=== PATIENT | male | born 1995 | race Caucasian/White ===

== ENCOUNTER 2018-03-23 22:30 | Emergency (ER) | payer MEDICAID, SELFPAY ==
[2018-03-23 22:31] VITALS: BP 162/78; PULSE 62; RESP 14; TEMP 36.7; O2SAT 97; BMI 32.8
--- NOTE | 2018-03-23 22:32 | ED.RN ---
NO OLD EKGS IN MUSE.
[2018-03-23 22:40] VITALS: PULSE 69; RESP 18
--- NOTE | 2018-03-23 22:40 | ED.VISSUMM ---
- ER Visit Summary Date of Service: 03/23/18 Chief Complaint: [] Asthma flare with shortness of breath and chest tightness History of Present Illness: The patient is a 22 M stated yesterday he developed wheezing and asthma flare. He is been using his inhaler every 20 minutes 2 puffs. He has had a dry cough. He has sick contacts. Current severity is mild. His last use of inhaler was prior to checking in the emergency department. This came on gradually. He has some tightness only when he gets wheezing. No current tightness. Occasional premature but current severity is mild. Maximum severity is mild. Worsened by coughing and having a cold. Denies any other associated symptoms. He has had this multiple times in the past. No recent prednisone. Physical Examination: [] Vital signs reviewed General: Well-nourished well-developed Head: Normocephalic atraumatic Eyes: Pupils equal round and reactive to light extraocular movements intact ENT: TMs clear no hemotympanum no trauma Neck: Nontender full range of motion Cardiovascular: Regular rate rhythm no murmurs normal S1-S2 Respiratory: No distress very mild and expiratory wheeze bilaterally chest nontender Abdomen: Soft nontender nondistended normal bowel sounds no masses Back: Nontender no CVA tenderness Extremities: Nontender active range of motion ?4 extremities no trauma Skin: Normal color no trauma Neuro alert oriented cranial nerves II through XII intact normal strength sensation reflexes Test Results: [] Emergency Department Course and Treatment: [] Time I feel the patient is having a viral upper respiratory infection likely trickling an asthma flare. He will be given prednisone. 1 dose in the department and a DuoNeb. He felt better after treatment. We will continue redness on burst at home. Patient will use his inhaler. I do not feel he needs a chest x-ray antibiotics or lab work or EKG. Treatment Plan: [] Disposition: [] Impression: [] Asthma exacerbation Viral upper respiratory infection This note was generated with [employer] dictation software. It may contain incorrect words, spelling, and punctuation that were not noted in review of the chart prior to signing ED Disposition - Plan for ED Patient: Chief Complaint: Chest Pain Referrals: [facility] Doctor,Out of [Primary Care Provider] -
--- NOTE | 2018-03-23 22:42 | ED.DEP ---
ED Disposition - Plan for ED Patient: Disposition: Home or Assisted Living Chief Complaint: Chest Pain Instructions: Understanding Asthma Triggers Prescriptions: predniSONE tablet 60 mg PO DAILY #15 tab Referrals: [facility] Doctor,Out of [Primary Care Provider] - Prabhakar Ac DO [NON CLINICAL AFFILIATE] -
[2018-03-23] MEDS: Ipratropium/Albuterol Sulfate 3 ML AMPUL.NEB INHALATION (22:54)
[2018-03-23 23:07] VITALS: O2SAT 94
[2018-03-23] MEDS: predniSONE 20 MG Tablet 60 MG PO (23:11)
[2018-03-23 23:12] VITALS: BP 147/77; PULSE 75; RESP 18; TEMP 37.6; O2SAT 96
[2018-03-23 23:15] VITALS: BP 160/87; PULSE 68; RESP 18; O2SAT 96
== END 2018-03-23 23:20 | disposition home or self-care (01) ==
LOC: ED 23:20
PROVIDERS: Emergency Provider Emergency Medicine
DX: J45.901 Unspecified asthma with (acute) exacerbation (principal); J06.9 Acute upper respiratory infection, unspecified
CPT/HCPCS: 94640; 99284

== ENCOUNTER 2018-05-05 11:10 | Emergency (ER) | payer MEDICAID, SELFPAY ==
[2018-05-05 11:11] VITALS: BP 142/72; PULSE 73; RESP 16; TEMP 36.8; O2SAT 98; BMI 34.4
--- NOTE | 2018-05-05 11:21 | RAD_ITS ---
STUDY: X-RAY CHEST REASON FOR EXAM: Male, 22 years old. Productive cough and wheezing TECHNIQUE: PA and lateral views of the chest. COMPARISON: None. FINDINGS: The lungs are clear and expanded. There is no demonstrated pleural abnormality. Normal size heart. Normal mediastinum and gonzález. Normal visualized pulmonary arteries. Normal visualized aortic arch and descending thoracic aorta. Normal visualized thoracic spine. Normal visualized ribs, clavicles, and shoulders. There is no demonstrated abnormality of the visualized soft tissue structures of the upper abdomen. RAD/Chest PA and Lateral IMPRESSION: Normal x-ray examination of the chest. Electronically Signed: Angie Shepard MD at 12:49 EST Tel , Service support ,
[2018-05-05 11:32] VITALS: PULSE 70; RESP 14
[2018-05-05] MEDS: Albuterol 2.5 MG/3 ML VIAL.NEB. INHALATION (11:32)
[2018-05-05] MEDS: Ipratropium/Albuterol Sulfate 3 ML AMPUL.NEB INHALATION (11:32)
[2018-05-05] MEDS: predniSONE 20 MG Tablet 60 MG PO (11:34)
[2018-05-05 13:26] VITALS: BP 140/59; PULSE 65; RESP 16; TEMP 36.7; O2SAT 97
--- NOTE | 2018-05-05 14:42 | ED.VISSUMM ---
- ER Visit Summary Date of Service: 05/05/18 Chief Complaint: Cough and shortness of breath History of Present Illness: The patient is a 22 M who is a smoker. He presents with productive cough of brown colored sputum. Onset of illness yesterday. He complains of subjective fever. Denies chills or sweats. He denies ocular, visual auditory symptoms. Does claim rhinorrhea and sore throat. He does report shortness of breath and shortness breath with activity. He does report nausea. He complains of myalgias and arthralgias. He also rates of headache and weakness. Review of systems otherwise negative. Past medical history unremarkable. Physical Examination: Vital signs noted and unremarkable. He is not hypoxic nor is he febrile. He appears ill. He has a moist cough. Head is atraumatic normocephalic. Pupils are equal round reactive. Extraocular muscles are intact. TMs are pearly white with landmarks noted. Nares patent with clear drainage. Posterior pharynx without erythema or exudate. Uvula is midline. There is no dysphonia or dysphasia. Trachea is midline. There is no stridor with auscultation of the neck. Abdomen is soft nontender. There is no asymmetry, swelling, discoloration, leg vein distention, palpable cords or tenderness along the distribution of the deep venous system. Neuro exam is nonfocal. Test Results: Two-view chest x-ray interpreted by me as negative Emergency Department Course and Treatment: Chest x-ray is obtained because he reports brown colored sputum. He was treated with a DuoNeb and albuterol and received 60 mg of prednisone. He was reassessed at 1440. He is no longer wheezing. Treatment Plan: 2 puffs MDI every 2 hours while awake for the next 2-3 days and 5-day burst of prednisone Disposition: Discharged home in stable improved condition Impression: Acute asthmatic bronchitis This note was generated with [employer] dictation software. It may contain incorrect words, spelling, and punctuation that were not noted in review of the chart prior to signing ED Disposition - Plan for ED Patient: Disposition: Home or Assisted Living Instructions: ED Bronchitis Asthmatic Prescriptions: Prednisone [Deltasone] 40 mg PO DAILY #10 tab Referrals: Care Physician,No Primary [Primary Care Provider] - Doctor,Your [STAFF PHYSICIAN] - 3-5 Days if not improving
== END 2018-05-05 14:59 | disposition home or self-care (01) ==
PROVIDERS: Emergency Provider Emergency Medicine
DX: J45.909 Unspecified asthma, uncomplicated (principal); R11.0 Nausea; J02.9 Acute pharyngitis, unspecified; R51 Headache; M79.10 Myalgia, unspecified site; M25.50 Pain in unspecified joint; F17.200 Nicotine dependence, unspecified, uncomplicated
CPT/HCPCS: 71046; 87804; 94640; 99283

== ENCOUNTER 2018-07-04 07:52 | Emergency (ER) | payer MEDICAID, SELFPAY ==
[2018-07-04 07:55] VITALS: BP 160/70; PULSE 53; RESP 18; TEMP 36.4; O2SAT 98; BMI 32.5
[2018-07-04 08:34] VITALS: BP 144/77; PULSE 67; RESP 16; TEMP 37.1; O2SAT 97
[2018-07-04 09:00] LABS: Color, Urine Yellow (Yellow); Glucose, Dipstick Normal (Normal); Ketone-Dipstick 15 mg/dl (Negative); Leukocyte Esterase-Dipstick 25 /ul (Negative); Nitrite-Dipstick Negative (Negative); Occult Blood-Urine 10 /ul (Negative); Protein-Dipstick Negative (Negative); Urine Bilirubin Dipstick Negative (Negative); Urine Clarity Sl. Cloudy (Clear); Urine Urobilinogen 4 mg/dl (Normal)
--- NOTE | 2018-07-04 09:02 | ED.VISSUMM ---
- ER Visit Summary Date of Service: 07/04/18 Chief Complaint: [Body aches and sore throat] History of Present Illness: The patient is a 22 M [presents to the emergency department with multiple complaints that started 2 days ago. Patient complains of a sore throat and diffuse body aches. He has had headache and nausea but no vomiting. He denies any diarrhea. Patient states that he has had multiple sick contacts at work. He has had a mild cough that is only occasionally productive. He is not had a fever. Patient also states that he has had some frequency and some dysuria over the last couple of days. He denies any blood in his urine.] Physical Examination: [HEENT-PERRLA, EOMI. Cranial nerves II through XII grossly intact. TMs clear. Mucous membranes moist. No adenopathy. Mild pharyngeal erythema. No tonsillar exudates. No trismus. Uvula midline. Cardiovascular-regular rate and rhythm without murmur or ectopy Lungs-clear to auscultation, chest wall stable without crepitus or subcu emphysema Abdomen-normoactive bowel sounds, soft, nontender, no rebound or rigidity, no peritoneal signs. Extremities-intact ?4, normal range of motion, normal pulses, atraumatic] Test Results: [Rapid strep screen was negative. Urinalysis was normal. Patient] Emergency Department Course and Treatment: [] Treatment Plan: [Patient will be given a prescription for naproxen. Patient advised to push fluids. Advised to follow-up with primary care physician contractor buyer for no doc within next 5-7 days. Patient to return if condition should worsen anyway. I suspect patient likely has a viral syndrome.] Disposition: [Discharged home in stable condition] Impression: Viral URI] This note was generated with [employer] dictation software. It may contain incorrect words, spelling, and punctuation that were not noted in review of the chart prior to signing ED Disposition - Plan for ED Patient: Referrals: Care Physician,No Primary [Primary Care Provider] -
--- NOTE | 2018-07-04 09:04 | ED.DEP ---
ED Disposition - Plan for ED Patient: Instructions: ED Viral Syndrome Prescriptions: Naproxen [Naprosyn] 500 mg PO BID PRN #20 tab Referrals: Care Physician,No Primary [Primary Care Provider] - Felicia Diop MD [STAFF PHYSICIAN] - 5-7 Days
[2018-07-04 09:06] LABS: Bacteria RARE /hpf (None Seen); Red Blood Cells-Urine 0-5 SEEN /hpf (0-5); Squamous Epithelial Cells - UA 0-5 SEEN /hpf (0-5); White Blood Cells 0-5 SEEN /hpf (0-5)
[2018-07-04 09:07] LABS: Mucous, Urine 1+ /hpf (<or=2+)
== END 2018-07-04 09:37 | disposition home or self-care (01) ==
LOC: ED 08:57
PROVIDERS: Emergency Provider Emergency Medicine
DX: J06.9 Acute upper respiratory infection, unspecified (principal); B34.9 Viral infection, unspecified; R30.0 Dysuria; R35.0 Frequency of micturition; R05 Cough; R51 Headache; R11.0 Nausea
CPT/HCPCS: 81001; 87880; 99281; 99282

== ENCOUNTER 2021-04-10 12:26 | Emergency (ER) | payer OTHER, SELFPAY ==
[2021-04-10 12:27] VITALS: BP 147/85; PULSE 77; RESP 16; TEMP 36.4; O2SAT 96; BMI 32.3
--- NOTE | 2021-04-10 12:51 | ED.VIS.LOWEX ---
HPI History of Present Illness Chief Complaint: Lower Extremity Injury Narrative Narrative: 25-year-old male presenting with right ankle pain. He states this around the medial and lateral malleoli. Patient states he rolled his ankle the other day running with his dog. He was seen in [facility] emergency room and had x-rays of the right ankle which were negative for fracture. Patient states he still has some pain and swelling in his ankle and he is concerned that his pain is not gone away. He states he is icing and elevating his right ankle. He is taking anti-inflammatories for pain. PFSH PFSH Home Medications albuterol sulfate [Ventolin Hfa (SP)] 1 - 2 puff INHALATION Q4H PRN PRN 05/05/18 [History Last Taken Unknown] naproxen 500 mg PO BID PRN #20 tab 07/04/18 [Rx Last Taken Unknown] tiotropium bromide [Spiriva] 18 mcg IH BID 07/04/18 [History Last Taken Unknown] naproxen [Naprosyn] 500 mg PO BID #20 tab 04/10/21 [Rx Last Taken Unknown] Allergy/AdvReac Type Severity Reaction Status Date / Time No Known Allergies Allergy Verified 04/10/21 12:27 Social History Smoking Status: Never smoker ROS ROS ED Constitutional Constitutional ED: Denies chills or fever(s) Eyes Eyes: Denies blurry vision or diplopia ENT ENT ED: Denies rhinorrhea or sore throat Cardiovascular Cardiovascular: Denies palpitations or racing heartbeat Respiratory/Chest Respiratory/Chest: Denies cough or dyspnea Gastrointestinal Gastrointestinal: Denies abdominal pain, diarrhea, nausea or vomiting Genitourinary Genitourinary ED: Denies dysuria, hematuria or urinary frequency Musculoskeletal Musculoskeletal: Reports other Details: Right ankle pain and swelling Integumentary Denies abscess or rash Neurologic Neurologic: Denies headache(s) or paresthesias EXAM Physical Exam Const Vital Signs: 04/10/21 12:27 Temperature 97.5 F L Temperature Source Temporal Pulse Rate 77 Respiratory Rate 16 Blood Pressure 147/85 H Blood Pressure Mean 105 Pulse Ox 96 Oxygen Delivery Method Room Air Positive well nourished General Appearance ED: NAD HEENT Reports moist mucous membranes normocephalic Resp normal respiratory effort and clear to auscultation bilaterally Cardio regular rate and regular rhythm Extremity Extremity Narrative: Tenderness and swelling to the medial and lateral malleolus of the right ankle. Right foot neurovascular intact brisk cap refill to all 5 toes. Patient able to dorsiflex and plantarflex the right ankle. No tenderness of the foot. Neuro oriented x3 Sensorium / Orientation: alert Psych mental status grossly normal Skin Lesions: no lesions Rashes: no rashes MDM MDM MDM Narrative Medical decision making narrative: Patient presenting with right ankle pain. He states he rolled it the other day. He is already had an x-ray of the right ankle which was negative for fracture. He has an Rc wrap and is bearing weight on it using 1 crutch. I obtained another x-ray today as the patient had concern that maybe they missed something at the other hospital. X-ray on my interpretation of his right ankle shows no acute fracture or subluxation. There is soft tissue swelling. Patient was counseled to keep this elevated and compressed. He has an Aircast and does not require. He has crutches and is using one of them. He is counseled he is weightbearing as tolerated. Patient will be discharged home to follow-up with his PCP. Impression: 1. Right ankle sprain Radiography Diagnostic Testing: Clinical Impression(s) from Imaging Studies Ankle X-Ray 04/10/21 12:55 IMPRESSION: Soft tissue swelling without underlying acute fracture. Electronically Signed: Jf Whatleyrenan, at 13:39 EST Tel , Service support , Discharge Plan Triage Chief Complaint: Lower Extremity Injury ED Provider: Eric Tovar Dx/Rx/DC Orders Instructions: ED Ankle Sprain (Adult) Prescriptions: New naproxen [Naprosyn] 500 mg tablet 500 mg PO BID Qty: 20 RF: 0 No Action albuterol sulfate [Ventolin HFA] 1 INHALER inhaler 1 - 2 puff inhalation Q4H PRN PRN (Reason: Wheezing) RF: 0 tiotropium bromide [Spiriva with HandiHaler] 18 MCG capsule, w/inhalation device 18 mcg IH BID RF: 0 naproxen 500 MG tablet 500 mg PO BID PRN Qty: 20 RF: 0 Primary Care Provider: Hayley Howard NP Referrals: Hayley Howard NP, G[employer]OW IRRIGATOR-C [Primary Care Provider] - Disposition Disposition: Home, Self Care
--- NOTE | 2021-04-10 12:55 | RAD_ITS ---
STUDY: X-RAY - RIGHT ANKLE REASON FOR EXAM: Male, 25 years old. Ankle pain TECHNIQUE: 3 view(s) of the ankle. COMPARISON: None. FINDINGS: Normal visualized distal tibia and fibula. Normal medial and lateral malleoli. Normal tibiotalar articulation and ankle mortise. Plantar and small posterior calcaneal spurs. The visualized subtalar, talonavicular, calcaneocuboid and tarsal articulations are normal. Soft tissue swelling laterally. RAD/Ankle min 3 Views IMPRESSION: Soft tissue swelling without underlying acute fracture. Electronically Signed: Jf Moses, at 13:39 EST Tel , Service support ,
== END 2021-04-10 15:22 | disposition home or self-care (01) ==
PROVIDERS: Emergency Provider Student in an Organized Health Care Education/Training Program; PCP Nurse Practitioner Family; Visit Provider Student in an Organized Health Care Education/Training Program
DX: S93.401A Sprain of unspecified ligament of right ankle, initial encounter (principal); X50.1XXA Overexertion from prolonged static or awkward postures, initial encounter; Y93.02 Activity, running; Y92.9 Unspecified place or not applicable
CPT/HCPCS: 73610; 99282